=== PATIENT | male | born 1960 | race Caucasian/White ===

== ENCOUNTER 2016-06-07 23:38 | Emergency (ER) | payer BC ==
[~2016-06-07] VITALS: Ht 188 cm; Wt 99.6 kg
[~2016-06-07 23:38] MED LIST: FLUDROCORTISON0.1 MG PO; PROTONIX40 MG PO; TYLENOL325 M1 PO
[2016-06-08 00:37] LABS: HEMATOCRIT 42.3 % (38.0-50.0); MCH 29.8 PG (29.0-34.0); MCHC 32.9 G/DL (30.0-36.0); MCV 90.8 FL (86-99); MEAN PLAT.VOLUME 9.4 uM^3 (9.0-12.4); PLATELET COUNT 277 K/uL (156-360); RBC DIS.WIDTH-CV 13.5 % (11.8-14.6); RBC DIS.WIDTH-SD 45.1 % (39-53); RED BLOOD COUNT 4.66 M/uL (4.00-5.50); WHITE BLOOD COUNT 12.1 K/uL (4.1-10.2)
[2016-06-08 00:49] LABS: CHLORIDE 108 mEq/L (99-109); SODIUM 140 mEq/L (136-147)
[2016-06-08 00:50] LABS: GLUCOSE 109 mg/dL (70-99)
[2016-06-08 00:52] LABS: ANION GAP 6 MEQ/L (2-14)
[2016-06-08 00:54] LABS: GFR ESTIMATE (CALCULATED) > 59 mL/min/
[2016-06-08 00:55] LABS: UREA NITROGEN (BUN) 18 mg/dL (9-23)
[2016-06-08 00:58] LABS: TROP-I INTERPRETATION NEGATIVE; TROPONIN-I < 0.01 ng/mL (0.0-0.30)
[2016-06-08 03:02] LABS: TOTAL BILIRUBIN 0.2 mg/dL (0.0-1.0)
[2016-06-08 03:03] LABS: ALKALINE PHOSPHATASE 52 IU/L (3-129)
[2016-06-08 03:06] LABS: DIRECT BILIRUBIN 0.1 mg/dL (0.0-0.3)
[2016-06-08 03:07] LABS: LIPASE 37 U/L (1.0-51.0)
[2016-06-08 04:32] LABS: ADD MIUA? NO; BILIRUBIN NEGATIVE; BLOOD NEGATIVE; COLOR YELLOW ((YELLOW)); GLUCOSE (STRIP) NEGATIVE; KETONES NEGATIVE; LEUKOCYTES NEGATIVE; NITRITE NEGATIVE; PROTEIN (STRIP) NEGATIVE; SPECIFIC GRAVITY 1.009 (1.000-1.030); UCUL ADDED? NO; UROBILINOGEN 0.2 MG/DL (0.2-1.0)
[2016-06-08] MEDS ORDERED: NORCO 5/3251 TABLET PO (05:15)
[2016-06-08] MEDS ORDERED: BENTYL20 MG PO (05:15)
[2016-06-08 05:24] VITALS: BP 132/88
== END 2016-06-08 05:25 | disposition home or self-care (01) ==
LOC: EME 23:38
PROVIDERS: Emergency Medicine
DX: N13.30 Unspecified hydronephrosis (principal); R10.11 Right upper quadrant pain; K21.9 Gastro-esophageal reflux disease without esophagitis
CPT/HCPCS: 71020; 74177; 80048; 80076; 81003; 83690; 84484; 85027; 93005; 99281; 99285; J2270; J2405; J7030

== ENCOUNTER 2016-06-10 10:15 | Emergency (ER) | payer BC ==
[~2016-06-10] VITALS: Ht 188 cm; Wt 99.9 kg
[~2016-06-10 10:15] MED LIST changes: +BENTYL20 MG PO; +NORCO 5/3251 TABLET PO
[2016-06-10] MEDS ORDERED: VALACYCLOVIR1000 MG PO (12:12)
[2016-06-10] MEDS ORDERED: NORCO 5/3251 TABLET PO (12:38)
[2016-06-10] MEDS ORDERED: ERYTHROMYC1 APPLICAT RIGHT EYE (12:43)
[2016-06-10 12:59] VITALS: BP 122/77
== END 2016-06-10 12:59 | disposition home or self-care (01) ==
LOC: EME 10:15
DX: H57.11 Ocular pain, right eye (principal); B02.9 Zoster without complications
CPT/HCPCS: 99281; 99284

== ENCOUNTER 2017-07-21 22:43 | Emergency (ER) | payer BC ==
[~2017-07-21] VITALS: Ht 188 cm; Wt 93.3 kg
[~2017-07-21 22:43] MED LIST changes: +ERYTHROMYC1 APPLICAT RIGHT EYE; +VALACYCLOVIR1000 MG PO
[2017-07-21 23:04] LABS: HEMATOCRIT 44.3 % (38.0-50.0); HEMOGLOBIN 15.2 G/DL (12.5-16.6); MCH 30.9 PG (29.0-34.0); MCHC 34.3 G/DL (30.0-36.0); PLATELET COUNT 230 K/uL (156-360); RBC DIS.WIDTH-CV 12.5 % (11.8-14.6); RBC DIS.WIDTH-SD 41.1 % (39-53); RED BLOOD COUNT 4.92 M/uL (4.00-5.50); WHITE BLOOD COUNT 14.5 K/uL (4.1-10.2)
[2017-07-21 23:14] LABS: CHLORIDE 110 mEq/L (99-109); POTASSIUM 3.9 mEq/L (3.7-5.4); SODIUM 141 mEq/L (136-147)
[2017-07-21 23:15] LABS: MAGNESIUM 2.1 mg/dL (1.3-2.7)
[2017-07-21 23:17] LABS: GLUCOSE 107 mg/dL (70-99); TOTAL PROTEIN 6.5 g/dL (6.4-8.3)
[2017-07-21 23:19] LABS: TOTAL BILIRUBIN 0.4 mg/dL (0.0-1.0)
[2017-07-21 23:20] LABS: ALKALINE PHOSPHATASE 67 IU/L (3-129)
[2017-07-21 23:21] LABS: CREATININE 0.9 mg/dL (0.6-1.3); GFR ESTIMATE (CALCULATED) > 59 mL/min/ (58.99-99999)
[2017-07-21 23:22] LABS: AST (GOT) 20 IU/L (2-34); DIRECT BILIRUBIN 0.1 mg/dL (0.0-0.3); UREA NITROGEN (BUN) 19 mg/dL (9-23)
[2017-07-21 23:23] LABS: ALT (GPT) 21 IU/L (3-49)
[2017-07-21 23:24] LABS: LIPASE 18 U/L (1.0-51.0); TROP-I INTERPRETATION NEGATIVE; TROPONIN-I < 0.01 ng/mL (0.0-0.30)
[2017-07-22] MEDS ORDERED: ZOFRAN ODT4 MG PO (00:42)
[2017-07-22 01:09] VITALS: BP 126/86
== END 2017-07-22 01:17 | disposition home or self-care (01) ==
LOC: EME → EDSEX 22:43 → EDBD 22:43 → EME 07-22 01:17
PROVIDERS: Emergency Medicine
DX: R55 Syncope and collapse (principal); R19.7 Diarrhea, unspecified; R11.2 Nausea with vomiting, unspecified; Z88.2 Allergy status to sulfonamides; I45.10 Unspecified right bundle-branch block
CPT/HCPCS: 80053; 82248; 83690; 83735; 84484; 85027; 93005; 99281; 99284; J2405; J7030